=== PATIENT | female | born 2005 | race African-American/Black ===

== ENCOUNTER 2023-07-22 00:15 | Emergency (ER) | payer OTHER ==
[~2023-07-22] VITALS: Ht 170.2 cm; Wt 71.6 kg
[2023-07-22 00:48] LABS: URINE PREG TEST NEGATIVE (NEGATIVE)
[2023-07-22 01:58] LABS: Trichomonas vaginalis (AMP) NOT DETECTED (NEGATIVE)
[2023-07-22 02:21] LABS: GC DNA AMPLIFICATION NEGATIVE (NEGATIVE)
[2023-07-22 08:31] VITALS: BP 121/71; TEMP 96.7; O2SAT 98
== END 2023-07-22 08:35 | disposition home or self-care (01) ==
LOC: M ED 00:15
DX: N92.6 Irregular menstruation, unspecified (principal)

== ENCOUNTER 2023-08-21 05:25 | Emergency (ER) | payer OTHER ==
[~2023-08-21] VITALS: Ht 170.2 cm; Wt 77.2 kg
[2023-08-21] MEDS: ONDANSETRON 4MG 2ML VIAL IV ONE (06:55)
[2023-08-21 06:58] LABS: BASO % 0.2 % (0.0-1.0); EOS # 0.3 10^3/uL (0.0-0.5); EOS % 3.8 % (0.0-3.0); HEMATOCRIT 34.6 % (36.0-47.0); HEMOGLOBIN 11.4 g/dl (12.0-15.5); LYMPH # 3.3 10^3/uL (1.5-5.0); LYMPH % 38.4 % (24.0-44.0); MEAN CORPUSCULAR HEMOGLOBIN 27.9 pg (27.0-33.0); MEAN CORPUSCULAR HGB CONC 32.9 g/dl (32.0-36.5); MEAN CORPUSCULAR VOLUME 84.6 fl (80.0-96.0); MONO % 11.5 % (2.0-8.0); NEUTROPHILS # 3.9 10^3/uL (1.5-8.5); PLATELET COUNT, AUTOMATED 174 10^3/uL (150-450); RED BLOOD COUNT 4.09 10^6/uL (4.00-5.40); WHITE BLOOD COUNT 8.5 10^3/uL (4.0-10.0)
[2023-08-21 07:19] LABS: LIPASE 23 U/L (12-53)
[2023-08-21 07:21] LABS: RSV AMPLIFICATION NEGATIVE (NEGATIVE)
[2023-08-21 07:22] LABS: ALKALINE PHOSPHATASE 63 U/L (46-116); ALT/SGPT 12 U/L (7.0-40); AST/SGOT 12 U/L (<34); BILIRUBIN,DIRECT 0.3 MG/DL (<0.4); TOTAL PROTEIN 7.2 G/DL (5.7-8.2)
[2023-08-21 07:37] LABS: HCG, SERUM QUALITATIVE NEGATIVE (NEGATIVE)
[2023-08-21] MEDS ORDERED: ONDA4TAB6 PO (07:53)
[2023-08-21 08:03] VITALS: BP 128/56; TEMP 97.3; O2SAT 100
== END 2023-08-21 08:19 | disposition home or self-care (01) ==
LOC: M ED 05:25
DX: R11.2 Nausea with vomiting, unspecified (principal); R19.7 Diarrhea, unspecified; Z79.899 Other long term (current) drug therapy
CPT/HCPCS: 80047; 80076; 81001; 83690; 84703; 85025; 87631; 87880; 96374; 99284; J2405

== ENCOUNTER 2023-08-31 21:03 | Emergency (ER) | payer OTHER ==
[~2023-08-31] VITALS: Ht 170.2 cm; Wt 70.8 kg
[~2023-08-31 21:03] MED LIST: ONDA4TAB6 PO
[2023-09-01 00:18] VITALS: BP 122/56; TEMP 97.6; O2SAT 100
== END 2023-09-01 00:20 | disposition home or self-care (01) ==
LOC: M ED 21:03
DX: S60.947A Unspecified superficial injury of left little finger, initial encounter (principal); Y92.019 Unspecified place in single-family (private) house as the place of occurrence of the external cause; Y93.9 Activity, unspecified; Y99.9 Unspecified external cause status; W23.1XXA Caught, crushed, jammed, or pinched between stationary objects, initial encounter; Z79.899 Other long term (current) drug therapy

== ENCOUNTER 2023-11-10 07:46 | Emergency (ER) | payer OTHER ==
[~2023-11-10] VITALS: Ht 170.2 cm; Wt 70.3 kg
[~2023-11-10 07:46] MED LIST changes: +ONDA-282 PO; -ONDA4TAB6 PO
[2023-11-10] MEDS ORDERED: BUPR150T12 PO (07:54)
[2023-11-10 08:47] LABS: RSV AMPLIFICATION NEGATIVE (NEGATIVE)
[2023-11-10] MEDS ORDERED: IBUP-1022 PO (11:03)
[2023-11-10] MEDS ORDERED: CETI-24 PO (11:03)
[2023-11-10] MEDS: CETIRIZINE (ZyrTEC) 10 MG TAB PO ONE (11:32)
[2023-11-10] MEDS: dexAMETHasone 4 MG TAB PO ONE (11:32)
[2023-11-10 11:44] VITALS: BP 128/57; TEMP 98; O2SAT 96
== END 2023-11-10 12:04 | disposition home or self-care (01) ==
LOC: M ED 07:46
DX: J02.9 Acute pharyngitis, unspecified (principal); H01.001 Unspecified blepharitis right upper eyelid; H01.004 Unspecified blepharitis left upper eyelid; Z79.1 Long term (current) use of non-steroidal anti-inflammatories (NSAID); Z79.899 Other long term (current) drug therapy

== ENCOUNTER 2024-04-28 20:10 | Emergency (ER) | payer OTHER ==
[~2024-04-28] VITALS: Ht 170.2 cm; Wt 72.0 kg
[~2024-04-28 20:10] MED LIST changes: +BUPR150T12 PO; +CETI-24 PO; +IBUP-1022 PO
[2024-04-28 21:17] LABS: BASO % 0.2 % (0.0-1.0); EOS # 0.1 10^3/uL (0.0-0.5); EOS % 1.4 % (0.0-3.0); HEMATOCRIT 35.4 % (36.0-47.0); HEMOGLOBIN 11.7 g/dl (12.0-15.5); LYMPH # 1.8 10^3/uL (1.5-5.0); LYMPH % 18.5 % (24.0-44.0); MEAN CORPUSCULAR HEMOGLOBIN 27.5 pg (27.0-33.0); MEAN CORPUSCULAR HGB CONC 33.1 g/dl (32.0-36.5); MEAN CORPUSCULAR VOLUME 83.3 fl (80.0-96.0); MONO % 10.2 % (2.0-8.0); NEUTROPHILS # 6.7 10^3/uL (1.5-8.5); NEUTROPHILS % 69.2 % (36.0-66.0); PLATELET COUNT, AUTOMATED 208 10^3/uL (150-450); RED BLOOD COUNT 4.25 10^6/uL (4.00-5.40); WHITE BLOOD COUNT 9.8 10^3/uL (4.0-10.0)
[2024-04-28 21:33] LABS: BLOOD UREA NITROGEN 18 MG/DL (9-23); CARBON DIOXIDE LEVEL 27 MMOL/L (20-31); CHLORIDE LEVEL 105 MMOL/L (98-107); CREATININE FOR GFR 1.33 MG/DL (0.55-1.30); GLUCOSE, FASTING 84 MG/DL (60-100); POTASSIUM SERUM 4.1 MMOL/L (3.5-5.1); SODIUM LEVEL 138 MMOL/L (136-145)
[2024-04-28 21:35] LABS: THYROID STIMULATING HORMONE 1.768 uIU/ML (0.48-4.17)
[2024-04-28 22:37] LABS: MAGNESIUM LEVEL 2.2 MG/DL (1.8-2.4)
[2024-04-28 22:53] VITALS: BP 119/71; TEMP 97.5; O2SAT 99
== END 2024-04-28 22:54 | disposition home or self-care (01) ==
LOC: M ED 20:10
DX: R55 Syncope and collapse (principal); R79.89 Other specified abnormal findings of blood chemistry; F41.9 Anxiety disorder, unspecified; Z79.1 Long term (current) use of non-steroidal anti-inflammatories (NSAID); Z79.899 Other long term (current) drug therapy

== ENCOUNTER 2024-05-31 14:03 | Inpatient (IN) | payer OTHER ==
[~2024-05-31] VITALS: Ht 170.2 cm; Wt 69.2 kg
[2024-05-31 14:37] LABS: HEMATOCRIT 38.8 % (36.0-47.0); HEMOGLOBIN 12.7 g/dl (12.0-15.5); MEAN CORPUSCULAR HEMOGLOBIN 28.3 pg (27.0-33.0); MEAN CORPUSCULAR HGB CONC 32.7 g/dl (32.0-36.5); MEAN CORPUSCULAR VOLUME 86.6 fl (80.0-96.0); PLATELET COUNT, AUTOMATED 236 10^3/uL (150-450); RED BLOOD COUNT 4.48 10^6/uL (4.00-5.40); WHITE BLOOD COUNT 9.9 10^3/uL (4.0-10.0)
[2024-05-31] MEDS ORDERED: FLUO40CA PO (14:44)
[2024-05-31] MEDS ORDERED: SUMA50TA2 PO (14:44)
[2024-05-31] MEDS ORDERED: VITA200028 PO (14:44)
[2024-05-31] MEDS ORDERED: SYED1TAB2 PO (14:44)
[2024-05-31 15:03] LABS: ETHYL ALCOHOL (ETHANOL) < 0.003 % (0.000-0.010)
[2024-05-31 15:05] LABS: HCG, SERUM QUALITATIVE NEGATIVE (NEGATIVE); SALICYLATE LEVEL < 3.0 MG/DL (<30)
[2024-05-31 15:06] LABS: ALBUMIN 4.1 G/DL (3.2-5.2); ALKALINE PHOSPHATASE 70 U/L (35-104); ALT/SGPT 21 U/L (7.0-40); AST/SGOT 13 U/L (<34); BILIRUBIN,DIRECT 0.2 MG/DL (<0.4); BILIRUBIN,TOTAL 0.8 MG/DL (0.3-1.2); BLOOD UREA NITROGEN 14 MG/DL (9-23); CALCIUM LEVEL 9.6 MG/DL (8.5-10.1); CARBON DIOXIDE LEVEL 28 MMOL/L (20-31); CHLORIDE LEVEL 102 MMOL/L (98-107); CREATININE FOR GFR 0.83 MG/DL (0.55-1.30); GLUCOSE, FASTING 81 MG/DL (60-100); POTASSIUM SERUM 3.9 MMOL/L (3.5-5.1); SODIUM LEVEL 139 MMOL/L (136-145); TOTAL PROTEIN 8.5 G/DL (5.7-8.2)
[2024-05-31 15:07] LABS: THYROID STIMULATING HORMONE 0.825 uIU/ML (0.48-4.17)
[2024-05-31 15:13] LABS: CANNABINOIDS URINE NEGATIVE (NEGATIVE); PHENCYCLIDINE URINE NEGATIVE (NEGATIVE)
[2024-05-31 15:14] LABS: AMPHETAMINES LEVEL URINE NEGATIVE (NEGATIVE); BARBITURATES URINE NEGATIVE (NEGATIVE); BENZODIAZEPINES URINE NEGATIVE (NEGATIVE); COCAINE METABOLITE URINE NEGATIVE (NEGATIVE); METHADONE URINE NEGATIVE (NEGATIVE); OPIATES URINE NEGATIVE (NEGATIVE)
[2024-05-31] MEDS ORDERED: HOME MED LIST COMPLETE! XX SCH (16:20)
[2024-06-01] MEDS ORDERED: IBUPROFEN 400MG TAB PO PRN (07:55)
[2024-06-01] MEDS ORDERED: MOM 30ML SUSPENSION UDC PO PRN (07:55)
[2024-06-01] MEDS ORDERED: MAALOX 30 ML SUSP *UDC PO PRN (07:55)
[2024-06-01] MEDS ORDERED: traZODone 50 MG TAB PO PRN (07:55)
[2024-06-01] MEDS ORDERED: ACETAMINOPHEN 325 MG TAB PO PRN (07:55)
[2024-06-01] MEDS: NICOTINE 14 MG/24 HR TRANSDERMAL TD SCH (09:00)
[2024-06-01 09:50] VITALS: BP 119/70; TEMP 97.3; O2SAT 99
[2024-06-01] MEDS ORDERED: LORazepam 2 MG TAB PO PRN (12:00)
[2024-06-01 12:14] VITALS: BP 102/60
[2024-06-01] MEDS: MULTIVITAMINS/MINERALS THERAP 1 TAB PO SCH (12:22)
[2024-06-01] MEDS: FOLIC ACID 1MG TAB PO SCH (12:22)
[2024-06-01] MEDS: THIAMINE 100 MG TAB PO SCH (12:22)
[2024-06-01 14:50] VITALS: BP 103/57; TEMP 98.3; O2SAT 98
[2024-06-01 22:00] VITALS: BP 108/62
[2024-06-02 06:13] VITALS: BP 102/56; TEMP 97.2; O2SAT 100
[2024-06-02] MEDS ORDERED: FLUoxetine 20MG CAP PO SCH (09:00)
[2024-06-02 09:25] VITALS: BP 114/53; TEMP 97.4; O2SAT 98
[2024-06-02 14:15] VITALS: BP 111/69; TEMP 97.3; O2SAT 98
[2024-06-02] MEDS ORDERED: SUMAtriptan SUCCINATE 25 MG TAB PO PRN (15:00)
[2024-06-02 22:00] VITALS: BP 108/72; TEMP 98.2; O2SAT 99
[2024-06-03 06:00] VITALS: BP 109/57
[2024-06-03 06:33] VITALS: BP 109/57; TEMP 98; O2SAT 100
[2024-06-03] MEDS: FLUoxetine 20MG CAP PO SCH (09:15)
[2024-06-03 16:20] VITALS: BP 128/69; TEMP 97.1; O2SAT 100
[2024-06-03 16:26] VITALS: BP 128/69; TEMP 97.1; O2SAT 100
[2024-06-04 06:48] VITALS: BP 119/55; TEMP 97.6; O2SAT 99
[2024-06-04 17:10] VITALS: BP 107/59; TEMP 97.8; O2SAT 100
[2024-06-05 06:32] VITALS: BP 106/58; TEMP 97.9; O2SAT 97
[2024-06-05 15:19] VITALS: BP 126/58; TEMP 97.8; O2SAT 100
[2024-06-05] MEDS ORDERED: ALPRAZolam 0.25 MG TAB PO PRN (17:00)
[2024-06-05] MEDS: diphenhydrAMINE 25MG CAP PO PRN (17:30)
[2024-06-06 06:36] VITALS: BP 91/51; TEMP 97.9; O2SAT 99
[2024-06-06] MEDS: FLUoxetine 20MG CAP PO SCH (09:31)
[2024-06-06 15:38] VITALS: BP 121/72; TEMP 98.4; O2SAT 98
[2024-06-07 06:46] VITALS: BP 104/54; TEMP 98.4; O2SAT 97
[2024-06-07] MEDS: FLUoxetine 20MG CAP PO SCH (09:09)
[2024-06-07 15:19] VITALS: BP 113/71; TEMP 97.2; O2SAT 100
[2024-06-08 06:47] VITALS: BP 119/54; TEMP 98.3; O2SAT 98
[2024-06-08 15:51] VITALS: BP 100/61; TEMP 98.2; O2SAT 97
[2024-06-09 06:29] VITALS: BP 106/56; TEMP 98.3; O2SAT 98
[2024-06-09] MEDS ORDERED: FLUO-365 PO (08:44)
== END 2024-06-09 13:00 | disposition home or self-care (01) | DRG 881 ==
LOC: M ED 14:03 → EDBD 14:03 → M ED INP 06-01 08:22 → M PSY 06-01 09:18
PROVIDERS: ADMIT Psychiatry & Neurology Psychiatry; ATTEND Psychiatry & Neurology Psychiatry
DX: F32.A Depression, unspecified (principal); R45.851 Suicidal ideations; F41.1 Generalized anxiety disorder; G43.909 Migraine, unspecified, not intractable, without status migrainosus; Z91.410 Personal history of adult physical and sexual abuse; Z79.899 Other long term (current) drug therapy; Z91.148 Patient's other noncompliance with medication regimen for other reason

== ENCOUNTER 2025-01-15 05:54 | Emergency (ER) | payer OTHER ==
[~2025-01-15] VITALS: Ht 170.2 cm; Wt 69.5 kg
[~2025-01-15 05:54] MED LIST changes: +FLUO-365 PO; +FLUO40CA PO; -IBUP-1022 PO; +IBUP600T42 PO; +SUMA50TA2 PO; +SYED1TAB2 PO; +VITA200028 PO
[2025-01-15 06:15] LABS: ABG BASE EXCESS -3.2 (-2.0-2.0); ABG HCO3 21.0 MMOL/L (22.0-26.0); ABG O2 SATURATION 98.4 % (95.0-99.0); ABG PARTIAL PRESSURE CO2 34.9 mmHg (35.0-45.0); ABG PARTIAL PRESSURE O2 126.2 mmHg (75.0-100.0); ABG STANDARD HCO3 21.8 MMOL/L. (22.0-26.0); ABG TOTAL CO2 22.1 MMOL/L (22.0-29.0); ABG pH (ARTERIAL) 7.398 UNITS (7.350-7.450)
[2025-01-15 06:47] LABS: BASO # 0.0 10^3/uL (0.0-0.2); BASO % 0.2 % (0.0-1.0); EOS # 0.4 10^3/uL (0.0-0.5); EOS % 5.3 % (0.0-3.0); LYMPH # 2.7 10^3/uL (1.5-5.0); LYMPH % 33.5 % (24.0-44.0); MONO # 0.7 10^3/uL (0.0-0.8); MONO % 8.6 % (2.0-8.0); NEUTROPHILS # 4.2 10^3/uL (1.5-8.5); NEUTROPHILS % 52.2 % (36.0-66.0); PLATELET COUNT, AUTOMATED 177 10^3/uL (150-450)
[2025-01-15 06:59] LABS: INR 1.12
[2025-01-15 07:15] LABS: CK-MB VALUE MASS < 1.0 NG/ML (<3.6); ETHYL ALCOHOL (ETHANOL) 0.109 % (0.000-0.010)
[2025-01-15 07:17] LABS: ALT/SGPT 18 U/L (7.0-40); AST/SGOT 20 U/L (<34); CALCIUM LEVEL 9.2 MG/DL (8.5-10.1); CARBON DIOXIDE LEVEL 24 MMOL/L (20-31); CHLORIDE LEVEL 108 MMOL/L (98-107); CPK CREATINE PHOSPHOKINASE 250 U/L (34-145); CREATININE FOR GFR 0.95 MG/DL (0.55-1.30); GLOMERULAR FILTRATION RATE 87.4 (>60); POTASSIUM SERUM 3.7 MMOL/L (3.5-5.1); SODIUM LEVEL 144 MMOL/L (136-145)
[2025-01-15] MEDS ORDERED: ISOVUE-370 76% 100 ML VIAL As Ordered ONE (07:29)
[2025-01-15 07:32] LABS: HCG, SERUM QUALITATIVE NEGATIVE (NEGATIVE)
[2025-01-15 07:45] LABS: APPEARANCE, URINE CLEAR (CLEAR); BACTERIA, URINE AUTO 1+ (NEGATIVE); BILIRUBIN, URINE AUTO NEGATIVE (NEGATIVE); BLOOD, URINE BLOOD NEGATIVE (NEGATIVE); GLUCOSE, URINE (UA) AUTO NEGATIVE (NEGATIVE); KETONE, URINE AUTO NEGATIVE (NEGATIVE); LEUKOCYTE ESTERASE, URINE AUTO NEGATIVE (NEGATIVE); NITRITE, URINE AUTO NEGATIVE (NEGATIVE); PROTEIN, URINE AUTO NEGATIVE (NEGATIVE); RBC, URINE AUTO 0 /HPF (0-3); SPECIFIC GRAVITY URINE AUTO 1.015 (1.002-1.035); SQUAMOUS EPITHELIAL CELL UR AU 4 /HPF (0-6); UROBILINOGEN, URINE AUTO 4.0 mg/dL (0.0-2.0); WBC, URINE AUTO 0 /HPF (0-3)
[2025-01-15 08:08] LABS: AMPHETAMINES LEVEL URINE NEGATIVE (NEGATIVE); BARBITURATES URINE NEGATIVE (NEGATIVE); BENZODIAZEPINES URINE NEGATIVE (NEGATIVE); CANNABINOIDS URINE NEGATIVE (NEGATIVE); COCAINE METABOLITE URINE NEGATIVE (NEGATIVE); METHADONE URINE NEGATIVE (NEGATIVE); OPIATES URINE NEGATIVE (NEGATIVE); PHENCYCLIDINE URINE NEGATIVE (NEGATIVE)
[2025-01-15] MEDS: NS (Normal Saline) 0.9% 1,000 ML IV ONE (08:09)
[2025-01-15] MEDS: ACETAMINOPHEN *IV* 1,000 MG in IV 1 EA IV ONE (08:14)
[2025-01-15 10:43] VITALS: BP 118/73; TEMP 97.3
[2025-01-15 10:45] VITALS: O2SAT 99
== END 2025-01-15 10:52 | disposition home or self-care (01) ==
LOC: M ED 05:54
DX: S06.0X0A Concussion without loss of consciousness, initial encounter (principal); S13.4XXA Sprain of ligaments of cervical spine, initial encounter; S33.5XXA Sprain of ligaments of lumbar spine, initial encounter; S23.3XXA Sprain of ligaments of thoracic spine, initial encounter; S20.213A Contusion of bilateral front wall of thorax, initial encounter; Y92.9 Unspecified place or not applicable; Y93.9 Activity, unspecified; Y99.9 Unspecified external cause status; V49.50XA Passenger injured in collision with unspecified motor vehicles in traffic accident, initial encounter; F41.9 Anxiety disorder, unspecified; F10.10 Alcohol abuse, uncomplicated; Z79.899 Other long term (current) drug therapy
CPT/HCPCS: 36600; 70450; 71045; 71260; 72125; 72128; 72131; 74177; 80047; 80048; 80076; 80307; 81001; 82077; 82150; 82550; 82553; 82803; 83605; 83690; 84484; 84703; 85025; 85610; 85730; 86850; 86900; 86901; 93041; 94760; 96365; 96366; 99285; J0131; Q9967